=== PATIENT | female | born 1945 | race Caucasian/White ===

== ENCOUNTER → 2024-12-17 13:53 | Outpatient (REF) | payer MEDICARE, SELFPAY | LOC: HWRAD 13:53 | PROVIDERS: ATTENDING PHYSICIAN Psychiatry & Neurology Behavioral Neurology & Neuropsychiatry; FAMILY PHYSICIAN Internal Medicine | DX: G30.9 Alzheimer's disease, unspecified (principal) | CPT/HCPCS: 70450 ==